=== PATIENT | male | born 1990 | race Caucasian/White ===

== ENCOUNTER → 2016-10-31 | Outpatient (CLI) | payer BC, OTHER | END | disposition home or self-care (01) | LOC: C.LAB1850 11:30 | PROVIDERS: ATTEND Internal Medicine Infectious Disease | DX: J02.9 Acute pharyngitis, unspecified (principal) ==

== ENCOUNTER → 2017-03-31 | Outpatient (CLI) | payer OTHER ==
[2017-03-31 11:15] LABS: BASO % 0.3 %; BASO ABS # 0.02 K/uL (0-0.2); COMPLETE YES; EOS % 1.2 %; HEMATOCRIT 44.9 % (42-52); IG% 0.2 %; LYMPH % 27.6 %; LYMPH ABS # 1.67 K/uL (1.2-3.4); MEAN CELL VOLUME 91.1 fL (80-100); MEAN CORPUSCULAR HEMOGLOBIN 31.4 pg (25-34); MEAN CORPUSCULAR HGB CONC 34.5 g/dl (32-36); MEAN PLATELET VOLUME 10.9 fL (7.4-10.4); MONO % 8.6 %; NEUT % 62.1 %; PLATELET COUNT 190 K/uL (130-400); RED BLOOD COUNT 4.93 M/uL (4.7-6.1); WHITE BLOOD COUNT 6.05 K/uL (4.8-10.8)
[2017-03-31 11:41] LABS: ALT/SGPT 27 U/L (12-78); BLOOD UREA NITROGEN 9 mg/dl (7-18); CALCIUM 9.6 mg/dl (8.5-10.1); CARBON DIOXIDE 29 mmol/L (21-32); CHLORIDE 107 mmol/L (98-107); GLUCOSE 61 mg/dl (70-99); SODIUM 141 mmol/L (136-145)
[2017-03-31 11:44] LABS: ALB/GLOB RATIO 1.3 (0.9-2); ALKALINE PHOSPHATASE 66 U/L (45-117); AST/SGOT 16 U/L (15-37)
[2017-04-03 10:04] LABS: HEPATITIS C VIRAL RNA BY PCR <15 NOT DETECTED IU/ML (<15); HEPATITIS C VIRAL RNA(LOG) PCR <1.18 NOT DETECTED LOG IU/ML (<1.18)
== END | disposition home or self-care (01) ==
LOC: C.LAB1850 10:37
PROVIDERS: ATTEND Internal Medicine Infectious Disease
DX: Z20.2 Contact with and (suspected) exposure to infections with a predominantly sexual mode of transmission (principal); Z20.6 Contact with and (suspected) exposure to human immunodeficiency virus [HIV]

== ENCOUNTER → 2017-07-03 | Outpatient (CLI) | payer OTHER ==
[2017-07-03 10:29] LABS: BASO % 1.1 %; BASO ABS # 0.05 K/uL (0-0.2); COMPLETE YES; EOS % 1.1 %; IG% 0.2 %; LYMPH % 35.1 %; LYMPH ABS # 1.57 K/uL (1.2-3.4); MEAN CELL VOLUME 92.1 fL (80-100); MEAN CORPUSCULAR HEMOGLOBIN 31.2 pg (25-34); MEAN CORPUSCULAR HGB CONC 33.9 g/dl (32-36); MEAN PLATELET VOLUME 10.6 fL (7.4-10.4); MONO % 10.1 %; NEUT % 52.4 %; PLATELET COUNT 201 K/uL (130-400); RED BLOOD COUNT 4.78 M/uL (4.7-6.1); WHITE BLOOD COUNT 4.47 K/uL (4.8-10.8)
[2017-07-03 10:59] LABS: ALT/SGPT 22 U/L (12-78); AST/SGOT 14 U/L (15-37); BLOOD UREA NITROGEN 13 mg/dl (7-18); BUN/CREATININE RATIO 11.4 (10-20); CALCIUM 9.1 mg/dl (8.5-10.1); CARBON DIOXIDE 25 mmol/L (21-32); CHLORIDE 107 mmol/L (98-107); GLUCOSE 89 mg/dl (70-99); POTASSIUM 3.6 mmol/L (3.5-5.1); SODIUM 140 mmol/L (136-145)
[2017-07-03 11:02] LABS: ALB/GLOB RATIO 1.1 (0.9-2); ALKALINE PHOSPHATASE 68 U/L (45-117)
== END | disposition home or self-care (01) ==
LOC: C.LAB1850 09:30
PROVIDERS: ATTEND Internal Medicine Infectious Disease
DX: Z20.2 Contact with and (suspected) exposure to infections with a predominantly sexual mode of transmission (principal)

== ENCOUNTER → 2017-09-29 | Outpatient (CLI) | payer OTHER ==
[~2017-09-29] MED LIST: ALPR1TAB3 PO; FEXO1TAB58 PO; FLUT0.15 NAE; TRVHP PO
[2017-09-29 12:22] LABS: BASO % 0.6 %; BASO ABS # 0.03 K/uL (0-0.2); EOS % 0.7 %; EOS ABS # 0.04 K/uL (0-0.5); HEMATOCRIT 46.8 % (42-52); HEMOGLOBIN 15.6 g/dL (14.0-18.0); LYMPH % 44.4 %; LYMPH ABS # 2.41 K/uL (1.2-3.4); MEAN CELL VOLUME 94.5 fL (80-100); MEAN CORPUSCULAR HEMOGLOBIN 31.5 pg (25-34); MEAN CORPUSCULAR HGB CONC 33.3 g/dl (32-36); MEAN PLATELET VOLUME 11.3 fL (7.4-10.4); MONO % 8.3 %; MONO ABS # 0.45 K/uL (0.11-0.59); PLATELET COUNT 207 K/uL (130-400); RED CELL DISTRIBUTION WIDTH CV 13.3 % (11.5-14.5); RED CELL DISTRIBUTION WIDTH SD 45.3 fL (36.4-46.3); WHITE BLOOD COUNT 5.43 K/uL (4.8-10.8)
[2017-09-29 15:50] LABS: ALBUMIN 4.2 gm/dl (3.4-5.0); ALT/SGPT 27 U/L (12-78); AST/SGOT 14 U/L (15-37); BLOOD UREA NITROGEN 12 mg/dl (7-18); CALCIUM 9.2 mg/dl (8.5-10.1); CARBON DIOXIDE 29 mmol/L (21-32); CREATININE 1.05 mg/dl (0.60-1.40); GLUCOSE 75 mg/dl (70-99); POTASSIUM 4.2 mmol/L (3.5-5.1); SODIUM 137 mmol/L (136-145)
[2017-09-29 15:52] LABS: ALKALINE PHOSPHATASE 73 U/L (45-117); TOTAL PROTEIN 8.1 gm/dl (6.4-8.2)
== END | disposition home or self-care (01) ==
LOC: C.LAB1850 11:32
PROVIDERS: ATTEND Internal Medicine Infectious Disease
DX: Z20.2 Contact with and (suspected) exposure to infections with a predominantly sexual mode of transmission (principal)

== ENCOUNTER 2017-09-30 22:15 | Emergency (ER) | payer OTHER ==
[~2017-09-30] VITALS: Ht 175.3 cm; Wt 59.9 kg
[2017-09-30 22:34] VITALS: BP 137/92; TEMP 36.6; Ht 175.3 cm; Wt 59.9 kg
[2017-09-30] MEDS ORDERED: FLUT0.15 NAE (22:40)
[2017-09-30] MEDS ORDERED: FEXO1TAB58 PO (22:40)
[2017-09-30] MEDS ORDERED: TRVHP PO (22:40)
[2017-09-30] MEDS ORDERED: ALPRAZOLAM 0.5 MG TAB PO STA (22:51)
[2017-09-30] MEDS ORDERED: ALPR1TAB3 PO (22:58)
[2017-09-30 23:14] VITALS: PULSE 89; O2SAT 98
--- NOTE | 2017-10-01 05:39 | EMERGENCY ROOM VISIT NOTE ---
History First contact with patient: 22:46 Chief Complaint: ANXIETY Stated Complaint: ANXIETY, CAN'T SLEEP History of Present Illness The patient is a 26 year old male who presents to the Emergency Room with complaints of exact difficulty sleeping for the past few days after he broke up with his boyfriend. Patient suffers from anxiety. He has had Xanax in the past and is requesting a few days worth to help out with his anxiety and sleep until he can get in with his psychiatrist. Patient denies chest pain, dyspnea, suicidal or homicidal ideations, drug use, abdominal pain, delusions, hallucinations. Review of Systems See HPI for pertinent positives & negatives. A total of 10 systems reviewed and were otherwise negative. Past Medical/Surgical History Anxiety Social History Smoking Status: Never Smoker Drug Use: none Marital Status: single Occupation Status: employed Current/Historical Medications Scheduled Alprazolam (Xanax), 1 TAB PO Q6H Emtricitabine/Temofovir (Truvada 200/300MG), 1 TAB PO DAILY Fexofenadine-Pseudoephedrine (Ruth-D 24 Hour Allergy), 1 TAB PO DAILY Fluticasone Propionate (Nasal) (Flonase Allergy Relief), 2 SPRAYS ANEL DAILY Physical Exam Vital Signs Date Time Temp Pulse Resp B/P (MAP) Pulse Ox O2 Delivery O2 Flow Rate FiO2 09/30/17 23:14 89 18 98 09/30/17 22:34 36.6 103 16 137/92 99 Room Air Physical Exam VITALS: Vitals are noted on the nurse's note and reviewed by myself. Vital signs stable. GENERAL: Pleasant male anxious., in no acute distress, nondiaphoretic, well- developed well-nourished. SKIN: Capillary reflex less than 2 seconds. HEENT: Normocephalic. PERRLA. EOMI. Nares patent. Mucous membranes moist. Neck is supple without nuchal rigidity. HEART: Regular rate and rhythm without murmurs gallops or rubs. LUNGS: Clear to auscultation bilaterally without wheezes, rales or rhonchi. No retractions or accessory muscle use. ABDOMEN: Positive bowel sounds x 4. Normal tympanic percussion. Soft, nontender, without masses or organomegaly. Lawson sign negative. No guarding or rebound tenderness. MUSCULOSKELETAL: No gross musculoskeletal defects. NEURO: Patient was alert and oriented to person place and time. Normal sensation to light and sharp touch. No focal neurological deficits. Psych: Pleasant and cooperative Medical Decision & Procedures Medications Administered Medications (Trade) Dose Ordered Sig/Brenda Route Start Time Stop Time Status Last Admin Dose Admin Alprazolam (Xanax Tab) 1 mg NOW STAT PO 09/30/17 22:51 09/30/17 22:52 DC 09/30/17 23:02 1 MG ED Course Prior records/ancillary studies reviewed. Triage Nursing notes reviewed. The patient's history was concerning for anxiety Differential diagnosis: Etiologies such as anxiety, situational reaction, electrolyte abnormality, thyroid disorder, as well as others were entertained. Physical examination: As above. ER treatment provided: Xanax to go On reassessment the patient felt better. Diagnostic interpretation by me: Deferred It appears the patient had an anxiety reaction to recent breakup with boyfriend. Patient had no suicidal or homicidal ideations. He was well- appearing. He was neurovascularly neurologically intact. He was advised to obtain all his benzodiazepines from his psychiatrist. Patient verbalized understanding this. It was over the weekend and this is what prompted him to come to the ER as he could not sleep the past few days from his anxiety. He was advised to return to the ER immediately for suicidal or homicidal ideations , chest pain, worsening signs or symptoms or as needed. By the evaluation outlined above emergent etiologies such as thyroid dysfunction , cardiac, as well as others were deemed relatively unlikely. The pt informed about the findings as listed above. All questions were answered and pleased with the treatment. Return instructions were outlined and the patient was discharged in stable condition. Outpatient prescription management: Xanax Referral: The patient was referred back to psychiatrist and primary care physician for follow-up in 2-3 days for a recheck of the current condition. Medical Decision As above [place] Drug Monitoring Program Search Results: patient reviewed within database, see additional documentation (he is had a few antianxiety prescriptions.) Medication Reconcilliation Current Medication List: was personally reviewed by me Blood Pressure Screening Patient's blood pressure: Normal blood pressure Impression Primary Impression: Acute anxiety Departure Information Dispostion Home / Self-Care Condition GOOD Prescriptions Alprazolam (Xanax) 1 Mg Tab 1 TAB PO Q6H, #10 TAB Prov: Edie Rizvi .LAMIN 09/30/17 Referrals No Doctor, Assigned Forms HOME CARE DOCUMENTATION FORM, IMPORTANT VISIT INFORMATION Patient Instructions Anxiety Body Response, My [facility] [place] [email or web address] Additional Instructions Xanax 1 m tablet at night as needed for anxiety. No alcohol or driving on this medication. Rest and drink plenty of fluids as tolerated. Continue current medications. Return to the ER immediately for worsening or persistent anxiety, abdominal pain , vomiting, fevers, chest pains, difficulty breathing, worsening of your condition, or as needed. Follow up with your primary physician and/or therapist in 2-3 days for a recheck of your current condition.
== END 2017-09-30 23:16 | disposition home or self-care (01) ==
LOC: C.EDB 22:15 → C.EDC 23:16
DX: F41.9 Anxiety disorder, unspecified (principal); Z79.899 Other long term (current) drug therapy

== ENCOUNTER → 2017-12-12 | Outpatient (CLI) | payer OTHER ==
--- NOTE | 2017-12-12 11:51 | DIAGNOSTIC IMAGING REPORT ---
L-SPINE MIN 4 VIEWS ROUTINE HISTORY: 27 years-old Male M54.5 Low back pain acute low back pain COMPARISON: None available TECHNIQUE: 5 views of the lumbar spine FINDINGS: There are 5 nonrib-bearing lumbar type vertebral segments. There is approximately 10 degrees dextroscoliosis of the thoracolumbar junction which may be accentuated by patient positioning. No spondylolysis or spondylolisthesis. No acute fracture, subluxation or significant degenerative changes. IMPRESSION: 1. No acute bony abnormality. 2. Approximately 10 degrees dextroscoliosis of the thoracolumbar junction, may be accentuated by patient positioning. The above report was generated using voice recognition software. It may contain grammatical, syntax or spelling errors. Electronically signed by: Deep Guevara M.D. 12/12/2017 11:50 AM Dictated Date/Time: 12/12/2017 11:49 AM
== END | disposition home or self-care (01) ==
LOC: C.RAD1850 11:38
PROVIDERS: ATTEND Physician Assistant
DX: M54.5 Low back pain (principal)